=== PATIENT | male | born 1955 | race Caucasian/White ===

== ENCOUNTER 2016-06-05 11:46 | Day surgery (SDC) | payer BC ==
[2016-06-03 08:40] VITALS: BMI 26.7
[~2016-06-05 11:46] MED LIST: DEXAMETHASONE SOD PHOSPHATE 10 MG/ML 1 ML VIAL IV ONE; HYDROmorphone 1 MG/ML 1 ML SYRINGE IVP PRN; LACTATED RINGERS 1,000 ML IV SCH; MIDAZOLAM 2 MG/2 ML VIAL IV PRN; ONDANSETRON 4 MG/2 ML VIAL IVP ONE; Pre Op ABX Message 1 EACH MISC MISCELLANE ONE; SCOPOLAMINE 1.5MG/72HR PATCH TRANSDERM ONE
[2016-06-05] MEDS ORDERED: LIDOCAINE 1% 20 ML VIAL (10MG/ML) FOR IV START INTRADERMA ONE (12:12)
[2016-06-05 12:18] VITALS: TEMP 97.1
[2016-06-05] MEDS ORDERED: fentaNYL (PF) 50 MCG/ML 2 ML AMP ONE (12:52)
[2016-06-05] MEDS ORDERED: MIDAZOLAM 2 MG/2 ML VIAL ONE (12:52)
[2016-06-05] MEDS ORDERED: GLYCOPYRROLATE 0.2 MG/ML 2 ML VIAL ONE (12:52)
[2016-06-05] MEDS ORDERED: KETAMINE 10 MG/ML 20 ML VIAL ONE (12:52)
[2016-06-05] MEDS ORDERED: LIDOCAINE 1% INJ 10MG/ML (20 ML MDV) ONE (12:52)
[2016-06-05] MEDS ORDERED: PROPOFOL 10 MG/ML 20 ML VIAL IV ONE (12:52)
[2016-06-05] MEDS ORDERED: LIDOCAINE 1% INJ 10MG/ML (20 ML MDV) SQ ONE ×2 (12:53)
--- NOTE | 2016-06-05 13:56 | P.OP ---
Date of Procedure: 06/05/16 Preoperative Diagnosis: Plantar fasciitis left heel Tissue mass report subsecond MPJ left foot Postoperative Diagnosis: Same Surgeon: Casa Chavira Operative Findings: Unremarkable Description of Procedure: On the date of surgery the patient was taken to the operating room in good condition placed on the operating table supine position where an IV was started and adequate IV anesthetic agents were utilized. Anesthesia was then further supplemented with approximately 20 mL of 1% Xylocaine plain given in an infiltrative block to the patient's left heel and the area subsecond MPJ of the patient's left foot. The patient's left foot and ankle were then prepped and draped in the usual aseptic manner and over heavy web roll padding an ankle tourniquet was placed just above the malleoli of the patient's left ankle. The patient's left foot and ankle were then elevated and exsanguinated of blood and after approximately 3 minutes. A time the ankle tourniquet was inflated to approximately 250 mmHg. At this point in time attention was directed to the plantar medial side of the patient's left heel where an approximately 1 cm linear incision was made in line with the medial band of the plantar fascia. The incision was deepened down through the level of the subcutaneous tissue layers all neurovascular structures encountered were identified isolated and were retracted and any bleeding vessels were clamped electrocauterized. Section was then carried deep via sharp dissection down to the level of the medial band of the plantar fascia this was identified with a fascial elevator and the fascial elevator was then passed along the inferior surface of the plantar fascia creating a channel for the obturator and cannula complex. Her did and a lateral exit portal incision was made. An L blade was then introduced into the cannul from the lateral side and the endoscope from the medial side. The medial band of the plantar fascia was severed with the elbow blade upon completion of this fascial probe was used to ensure that all fibers had been severed and when this was seen to be true the surgical site was flushed with copious amounts of sterile saline solution. Cannula was removed and the incisions were closed utilizing 4-0 nylon simple interrupted suture. At this point in time attention was directed to the patient's left forefoot where an approximately 2 cm curvilinear incision was made just distal to the second metatarsal phalangeal joint and on the medial side of the soft tissue mass present there the incision was placed in the intermetatarsal space was deepened via sharp dissection down through the level of the subcutaneous tissue layers all neurovascular structures encountered were identified isolated and were retracted and any bleeding vessels were clamped electrocauterized. Soft tissue mass was noted to be present was dissected free and removed in total from the surgical site and measured approximately 0.75 cm in length and 0.5 cm in width the incision was then inspected for any remaining since of the mass and when none was seen subcutaneous tissues were closed utilizing 3-0 Vicryl simple interrupted suture skin was then closed utilizing 4-0 nylon simple interrupted suture. Gross sites were covered with Adaptic and fluff dressing and Kerlix fluffs and a Kerlix roll. Was used to secured compressive dressing and the ankle tourniquet was deflated adequate hemostatic return was seen in all digits the patient's left foot tolerated the surgery and anesthesia well was taken recovery room in good postoperative condition
[2016-06-05 13:59] VITALS: RESP 18
[2016-06-05 14:30] VITALS: BP 113/70; PULSE 65
== END 2016-06-05 15:18 | disposition home or self-care (01) ==
LOC: OR 11:46
PROVIDERS: ATTEND Podiatrist Foot & Ankle Surgery
DX: M72.2 Plantar fascial fibromatosis (principal); R22.42 Localized swelling, mass and lump, left lower limb; I10 Essential (primary) hypertension; E78.5 Hyperlipidemia, unspecified; I34.0 Nonrheumatic mitral (valve) insufficiency; Z79.899 Other long term (current) drug therapy
CPT/HCPCS: 29893; 28039; J2250; J1100; J2405; J2001; J3010; J2704; 88304; 88342

== ENCOUNTER → 2016-10-14 | Outpatient (CLI) | payer BC ==
--- NOTE | 2016-10-14 10:30 | US ---
EXAMINATION TYPE: US carotid duplex BILAT DATE OF EXAM: 10/14/2016 COMPARISON: NONE CLINICAL HISTORY: H53.123 Transient Visual Loss. Vision loss, dizziness, headache EXAM MEASUREMENTS: RIGHT: Peak Systolic Velocity (PSV) cm/sec ----- Right CCA: 120 ----- Right ICA: 114 ----- Right ECA: 130 ICA/CCA ratio: 0.95 RIGHT: End Diastole cm/sec ----- Right CCA: 37.8 ----- Right ICA: 25.1 ----- Right ECA: 23.1 LEFT: Peak Systolic Velocity (PSV) cm/sec ----- Left CCA: 101 ----- Left ICA: 95.1 ----- Left ECA: 128 ICA/CCA ratio: 0.94 LEFT: End Diastole cm/sec ----- Left CCA: 29.2 ----- Left ICA: 28.0 ----- Left ECA: 24.5 VERTEBRALS (direction of flow): Right Vertebral: Antegrade Left Vertebral: Antegrade Minimal plaque noted bilateral bifurcations. No evidence of significant stenosis. IMPRESSION: Minimal nesbitt scale plaquing of the carotid bulbs with no evidence of hemodynamically sig nificant stenosis within either carotid system.
== END | disposition home or self-care (01) ==
LOC: RADUSWWP 09:24
PROVIDERS: ATTEND Family Medicine
DX: I65.29 Occlusion and stenosis of unspecified carotid artery (principal)
CPT/HCPCS: 93880